=== PATIENT | female | born 1980 | race Caucasian/White ===

== ENCOUNTER → 2022-11-01 | Outpatient (CLI) | payer BC ==
--- NOTE | 2022-11-01 09:12 | NM ---
EXAMINATION TYPE: NM hepatobiliary w EF DATE OF EXAM: 11/01/2022 COMPARISON: NONE HISTORY: 42-year-old female R1 0.11 TECHNIQUE: After the intravenous administration of 5.1 mCi Tc 99m Mebrofenin hepatobiliary scintigrap hy is performed. Immediate images post injection. FINDINGS: There is satisfactory initial accumulation of tracer by the liver. The gallbladder is visualized wit hin 4 minutes. The small bowel activity is noted within 8 minutes. At one hour 8 ounces of oral ens ure plus is given to mimic CCK and gallbladder ejection fraction is calculated at 72 %, in the normal range. Therefore there is no scintigraphic evidence of cystic or common bile duct obstruction to [place] acute cholecystitis or gallbladder dyskinesia. IMPRESSION: No scintigraphic evidence for acute/chronic cholecystitis or biliary dyskinesia.
== END | disposition home or self-care (01) ==
LOC: RADNMMAIN 06:48
PROVIDERS: ATTEND Internal Medicine Gastroenterology
DX: R10.11 Right upper quadrant pain (principal)
CPT/HCPCS: 78226; A9537